=== PATIENT | female | born 1945 | race Caucasian/White ===

== ENCOUNTER 2016-11-06 12:22 | Emergency (ER) | payer MEDICARE, BC ==
--- NOTE | 2016-11-06 13:13 | EDM.PDOC ---
ED HPI GENERAL MEDICAL PROBLEM - General Chief Complaint: Abdominal Pain Stated Complaint: Abdominal Pain Time Seen by Provider: 11/06/16 12:34 Source of Information: Reports: Patient History Limitations: Reports: No Limitations - History of Present Illness INITIAL COMMENTS - FREE TEXT/NARRATIVE: Patient developed LUQ pain in abdomen around 4am. Has nausea. No emesis. Feels like previous obstructions that she has experienced. Was passing a lot of gas, now none. Has had approx 4 very small bowel movements. Had to have surgery last year in LUQ area to relieve bowel obstruction. Recently had her anxiety medication changed and feels it slowed down her BMs. Does not recall name of new medication. Denies other changes on ROS Abdominal Pain Score (Numeric/FACES): 10 - Related Data Allergies Allergy/AdvReac Type Severity Reaction Status Date / Time codeine phosphate Allergy Hives Verified 11/06/16 13:42 [From Tylenol-Codeine #3] morphine Allergy Hives Verified 11/06/16 13:42 Home Meds: Home Meds Sertraline [Zoloft] 200 mg PO DAILY 07/08/14 [History] Dexlansoprazole [Dexilant] 30 mg PO DAILY 04/20/15 [History] Sennosides/Docusate Sodium [Senna S Tablet] 2 each PO DAILY 04/20/15 [History] Simvastatin [Zocor] 20 mg PO BEDTIME 04/20/15 [History] Naproxen Sodium [Aleve] 440 mg PO ASDIRECTED PRN 11/10/15 [History] Amitriptyline [Elavil] 25 mg PO BEDTIME #30 tablet 11/16/15 [Rx] Gabapentin [Neurontin] 100 mg PO BEDTIME #30 cap 11/16/15 [Rx] ALPRAZolam [Alprazolam] 1 tab PO Q6HR PRN 11/06/16 [History] buPROPion HCl [Wellbutrin Xl] 150 mg PO DAILY 11/06/16 [History] Past Medical History HEENT History: Reports: Impaired Vision, Other (See Below) Other HEENT History: Glasses Cardiovascular History: Reports: High Cholesterol Respiratory History: Reports: COPD, Pulmonary Fibrosis, Sleep Apnea, Other (See Below) Other Respiratory History: COPD and pulmonary fibrosis by chest x-ray, patient did not tolerate auto CPAP Gastrointestinal History: Reports: Bowel Obstruction, Cholelithiasis, Chronic Constipation, Diverticulosis, GERD, GI Bleed, Hiatal Hernia, Irritable Bowel Syndrome, PUD, Other (See Below) Other Gastrointestinal History: History of recurrent small bowel obstructions and previous diverticulitis with status post hemicolectomy, moderate hiatal hernia, benign hepatic and renal cysts, LFTs elevation secondary to fatty liver Genitourinary History: Reports: Urinary Incontinence LOADER UNLOADER History: Reports: Dysfunctional Uterine Bleeding, , Spontaneous , Other (See Below) Other OB/BYN History: Surgical menopause as below, patient is 5 para [id number] with SABs between 3 and 5 months gestation requiring D&Cs as below, hysterectomy secondary to dysfunctional uterine bleeding Musculoskeletal History: Reports: Back Pain, Chronic, Fracture, Osteoarthritis, Osteoporosis, Other (See Below) Other Musculoskeletal History: History scoliosis with chronic low back pain, right bimalleolar ankle fracture on 06/10/09 Neurological History: Reports: Migraines, Neuropathy, Peripheral Psychiatric History: Reports: Addiction, Anxiety, Depression, Panic Attack, Psych Hospitalization(s), PTSD, Other (See Below) Other Psychiatric History: Previous history of chronic narcotic use/abuse. PTSD secondary to of her daughter from breast cancer at an early age Endocrine/Metabolic History: Reports: Multinodular Thyroid, Osteoporosis Hematologic History: Reports: None Immunologic History: Reports: Other (See Below) Other Immunologic History: Auto-immune scalp alopecia as below Oncologic (Cancer) History: Reports: None Dermatologic History: Reports: Other (See Below) Other Dermatologic History: Autoimmune scalp alopecia - Infectious Disease History Infectious Disease History: Reports: Chicken Pox, Measles, Mumps, Rheumatic Fever - Past Surgical History HEENT Surgical History: Reports: Oral Surgery, Other (See Below) GI Surgical History: Reports: Appendectomy, Cholecystectomy, Colon, Colonoscopy , EGD, Hernia, Abdominal, Lysis of Adhesions, Michelle Fundoplication, Small Bowel , Other (See Below) Female Surgical History: Reports: D&C, Dilitation & Evacuation, Hysterectomy , Salpingo-Oophorectomy, Other (See Below) Musculoskeletal Surgical History: Reports: Ganglion Cyst, ORIF, Other (See Below ) Oncologic Surgical History: Reports: Biopsy of Breast - Past Imaging History Past Imaging History: Reports: Cardiac Echo, Carotid US, CAT Scan, DEXA Scan, Mammogram, Sleep Study, Stress Testing, Ultrasound Social & Family History - Family History HEENT: Reports: None Cardiac: Reports: CAD, Heart Failure, Hypertension, SD, Other (See Below) Other Cardiac Family History: Coronary artery disease in mother and sister with mother with fatal CHF at age 91 and heart attack at age 89. Hypertension in parents Respiratory: Reports: None GI: Reports: None : Reports: Renal Disease/Insufficiency OBGYN: Reports: None Musculoskeletal: Reports: Arthritis, Osteoarthritis, RA, Other (See Below) Other Musculoskeletal Family History: Sister and parents with rheumatoid arthritis Neurological: Reports: Alzheimers Disease, CVA, Dementia, Migraines, Parkinson's , Other (See Below) Other Neurological Family History: Mother with CVA in her 50s. Paternal grandfather with Parkinson's disease, father with organic brain syndrome/ dementia, daughters x2 with migraines Psychiatric: Reports: Anxiety, Depression, Other (See Below) Other Psychiatric Family History: Anxiety and depression in parents and 3 children Endocrine/Metabolic: Reports: None Hematologic: Reports: None Immunologic: Reports: None Dermatologic: Reports: None Oncologic: Reports: Breast, Metastatic - Tobacco Use Smoking Status *Q: Former Smoker Years of Tobacco use: 53 Packs/Tins Daily: 1 Used Tobacco, but Quit: Yes Month Tobacco Last Used: Discontinued in July 2014 Second Hand Smoke Exposure: No - Caffeine Use Caffeine Use: Reports: Coffee (5 cups of coffee per day), Tea (4 cups of green tea per day). Denies: Energy Drinks, Soda - Alcohol Use Days Per Week of Alcohol Use: 0 (No previous DWIs, problems with alcohol abuse, etc.) Number of Drinks Per Day: 1 (Usually wine for holiday) Total Drinks Per Week: 0 - Recreational Drug Use Recreational Drug Use: No Drug Use in Last 12 Months: No Recreational Drug Type: Denies: Amphetamines (Speed), Marijuana/Hashish, Methamphetamine - Living Situation & Occupation Living situation: Reports: , with Family Occupation: Retired ED ROS GENERAL - Review of Systems Review Of Systems: See Below Constitutional: Reports: Decreased Appetite. Denies: Fever, Chills, Malaise, Weakness, Night Sweats, Diaphoresis HEENT: Reports: No Symptoms Respiratory: Reports: No Symptoms Cardiovascular: Reports: No Symptoms GI/Abdominal: Reports: Abdominal Pain, Decreased Appetite, Nausea. Denies: Black Stool, Bloody Stool, Constipation, Hematemesis, Hematochezia, Vomiting : Reports: Other (Wears depends, feels that urine has been more leaky than usual over the past few weeks. ) Musculoskeletal: Reports: No Symptoms Skin: Reports: No Symptoms Neurological: Reports: No Symptoms Psychiatric: Reports: No Symptoms ED EXAM, GI/ABD - Physical Exam Exam: See Below Exam Limited By: No Limitations General Appearance: Alert, WD/WN, Mild Distress Eyes: Bilateral: Normal Appearance, EOMI Ears: Normal External Exam Nose: Normal Inspection. No: Nasal Swelling, Nasal Drainage Throat/Mouth: Normal Inspection, Normal Lips, Normal Voice, No Airway Compromise Head: Atraumatic, Normocephalic Neck: Normal Inspection, Supple, Non-Tender, Full Range of Motion. No: Lymphadenopathy (L), Lymphadenopathy (R) Respiratory/Chest: No Respiratory Distress, Lungs Clear, Normal Breath Sounds, No Accessory Muscle Use, Chest Non-Tender Cardiovascular: Normal Peripheral Pulses, Regular Rate, Rhythm, No Edema, No Murmur GI/Abdominal: Soft, Hypoactive Bowel Sounds, Tenderness (throughout, more so LUQ and periumbilically). No: Distention, Guarding, Rebound, Rigidity Back Exam: Normal Inspection. No: CVA Tenderness (L), CVA Tenderness (R), Muscle Spasm, Paraspinal Tenderness, Vertebral Tenderness Extremities: Normal Inspection, Normal Range of Motion, Non-Tender, No Pedal Edema, Normal Capillary Refill Neurological: Alert, Oriented, Normal Cognition, Normal Gait, No Motor/Sensory Deficits Psychiatric: Anxious Skin Exam: Warm, Dry, Intact, Normal Color Course - Vital Signs Last Recorded V/S: Last Vital Signs Temp 36.4 C 11/06/16 12:40 Pulse 62 11/06/16 12:40 Resp 20 11/06/16 12:40 BP 147/82 H 11/06/16 12:40 Pulse Ox 98 11/06/16 12:40 - Orders/Labs/Meds Orders: Active Orders 24 hr Category Date Time Status Peripheral IV Care [RC] . DIRECTED Care 11/06/16 12:37 Active Abdomen 2V AP Flat Upright [CR] Stat Exams 11/06/16 12:38 Ordered Sodium Chloride 0.9% [Normal Saline] 1,000 ml Med 11/06/16 13:23 Ordered IV .BOLUS Sodium Chloride 0.9% [Saline Flush] Med 11/06/16 12:37 Active 10 ml FLUSH ASDIRECTED PRN fentaNYL [Sublimaze] Med 11/06/16 13:52 Once 50 mcg IVPUSH ONETIME ONE Peripheral IV Insertion Adult [OM.PC] Stat Oth 11/06/16 12:37 Ordered Medication Orders Sodium Chloride (Normal Saline) 1,000 mls @ 250 mls/hr IV .BOLUS ONE Stop: 11/06/16 17:22 Last Admin: 11/06/16 13:32 Dose: 250 mls/hr Sodium Chloride (Saline Flush) 10 ml FLUSH ASDIRECTED PRN PRN Reason: Keep Vein Open Last Admin: 11/06/16 13:31 Dose: 10 ml Labs: Laboratory Tests 11/06/16 11/06/16 11/06/16 Range/Units 12:37 12:50 12:50 WBC 6.7 (4.0-10.2) K/uL RBC 4.32 (3.77-5.09) M/uL Hgb 13.4 D (11.7-15.5) g/dL Hct 38.6 (34.0-46.0) % MCV 89.4 (84.0-98.0) fL MCH 31.0 (28.2-33.3) pg MCHC 34.7 (31.7-36.0) g/dL RDW 13.3 (11.2-14.1) % Plt Count 187 (150-350) K/uL Neut % (Auto) 57.5 (45.0-80.0) % Lymph % (Auto) 29.2 (10.0-50.0) % [place] % (Auto) 7.8 (2.0-14.0) % Eos % (Auto) 4.3 (0.0-5.0) % Baso % (Auto) 1.2 (0.0-2.0) % Neut # (Auto) 3.83 (1.40-7.00) K/uL Lymph # (Auto) 1.95 (0.50-3.50) K/uL [place] # (Auto) 0.52 (0.00-1.00) K/uL Eos # (Auto) 0.29 (0.00-0.50) K/uL Baso # (Auto) 0.08 (0.00-0.20) K/uL Sodium 142 (136-145) mmol/L Potassium 3.9 (3.5-5.1) mmol/L Chloride 109 H (98-107) mmol/L Carbon Dioxide 25.3 (21.0-32.0) mmol/L BUN 12 (7-18) mg/dL Creatinine 0.66 (0.51-1.17) mg/dL Est Cr Clr Drug Dosing TNP Estimated GFR (MDRD) > 60 mL/min Glucose 109 H (74-106) mg/dL Lactic Acid (0.4-2.0) mmol/L Calcium 9.0 (8.5-10.1) mg/dL Total Bilirubin 0.2 (0.2-1.0) mg/dL AST 16 (15-37) U/L ALT 17 (12-78) U/L Alkaline Phosphatase 82 (46-116) IU/L Troponin I 0.003 (0.000-0.056) ng/mL Total Protein 7.2 (6.4-8.2) g/dL Albumin 3.5 (3.4-5.0) g/dL Amylase 48 (25-115) U/L Lipase 100 (73-393) U/L Specimen Type Urinvoid Urine Color Light yellow Urine Appearance Clear Urine pH 8.5 (5.0-9.0) Ur Specific [place] 1.015 (1.005-1.030) Urine Protein Negative (NEGATIVE) mg/dL Urine Glucose (UA) Negative (NEGATIVE) mg/dL Urine Ketones Negative (NEGATIVE) mg/dL Urine Occult Blood Negative (NEGATIVE) Urine Nitrite Negative (NEGATIVE) Urine Bilirubin Negative (NEGATIVE) Urine Urobilinogen 0.2 (0.2-1.0) E.U./dL Ur Leukocyte Esterase Negative (NEGATIVE) Urine RBC 0-5 /HPF Urine WBC Not seen /HPF Ur Epithelial Cells Not seen /LPF Urine Bacteria Not seen (NONE TO FEW) /HPF 11/06/16 Range/Units 12:50 WBC (4.0-10.2) K/uL RBC (3.77-5.09) M/uL Hgb (11.7-15.5) g/dL Hct (34.0-46.0) % MCV (84.0-98.0) fL MCH (28.2-33.3) pg MCHC (31.7-36.0) g/dL RDW (11.2-14.1) % Plt Count (150-350) K/uL Neut % (Auto) (45.0-80.0) % Lymph % (Auto) (10.0-50.0) % [place] % (Auto) (2.0-14.0) % Eos % (Auto) (0.0-5.0) % Baso % (Auto) (0.0-2.0) % Neut # (Auto) (1.40-7.00) K/uL Lymph # (Auto) (0.50-3.50) K/uL [place] # (Auto) (0.00-1.00) K/uL Eos # (Auto) (0.00-0.50) K/uL Baso # (Auto) (0.00-0.20) K/uL Sodium (136-145) mmol/L Potassium (3.5-5.1) mmol/L Chloride (98-107) mmol/L Carbon Dioxide (21.0-32.0) mmol/L BUN (7-18) mg/dL Creatinine (0.51-1.17) mg/dL Est Cr Clr Drug Dosing Estimated GFR (MDRD) mL/min Glucose (74-106) mg/dL Lactic Acid 0.5 (0.4-2.0) mmol/L Calcium (8.5-10.1) mg/dL Total Bilirubin (0.2-1.0) mg/dL AST (15-37) U/L ALT (12-78) U/L Alkaline Phosphatase (46-116) IU/L Troponin I (0.000-0.056) ng/mL Total Protein (6.4-8.2) g/dL Albumin (3.4-5.0) g/dL Amylase (25-115) U/L Lipase (73-393) U/L Specimen Type Urine Color Urine Appearance Urine pH (5.0-9.0) Ur Specific [place] (1.005-1.030) Urine Protein (NEGATIVE) mg/dL Urine Glucose (UA) (NEGATIVE) mg/dL Urine Ketones (NEGATIVE) mg/dL Urine Occult Blood (NEGATIVE) Urine Nitrite (NEGATIVE) Urine Bilirubin (NEGATIVE) Urine Urobilinogen (0.2-1.0) E.U./dL Ur Leukocyte Esterase (NEGATIVE) Urine RBC /HPF Urine WBC /HPF Ur Epithelial Cells /LPF Urine Bacteria (NONE TO FEW) /HPF Meds: Medications Generic Name Dose Route Start Last Admin Trade Name Freq PRN Reason Stop Dose Admin Sodium Chloride 1,000 mls @ 250 mls/hr 11/06/16 13:23 11/06/16 13:32 Normal Saline IV 11/06/16 17:22 250 mls/hr .BOLUS ONE Administration Sodium Chloride 10 ml 11/06/16 12:37 11/06/16 13:31 Saline Flush FLUSH 10 ml ASDIRECTED PRN Administration Keep Vein Open Discontinued Medications Generic Name Dose Route Start Last Admin Trade Name Freq PRN Reason Stop Dose Admin Fentanyl 25 mcg 11/06/16 13:14 11/06/16 13:29 Sublimaze IVPUSH 11/06/16 13:15 25 mcg ONETIME ONE Administration Ondansetron HCl 4 mg 11/06/16 13:15 11/06/16 13:31 Zofran IVPUSH 11/06/16 13:16 4 mg ONETIME ONE Administration - Radiology Interpretation Free Text/Narrative:: abdominal film shows scattered air/fluid levels. No obvious free air. - Re-Assessments/Exams Free Text/Narrative Re-Assessment/Exam: 11/06/16 13:54 CBC/Chem/UA/amylase/lipase/troponin overall unremarkable. Pain improved with Fentanyl. Zofran given. Suspect partial bowel obstruction given history and presentation. Admission advised. Patient preferred to go to [facility] as she require surgery last episode and can have surgical consult performed at that facility. , hospitalist at [facility], contacted. Accepted patient in transfer. No emesis observed. No abdominal distention observed. Discussed with patient that NG tube may need to be placed. She wished to wait until getting to [facility] before considering NG tube placement. NPO at time of transfer. Departure - Departure Time of Disposition: 13:58 Disposition: DC/Tfer to Acute Hospital 02 Condition: Good Clinical Impression: Partial bowel obstruction - Discharge Information Forms: ED Department Discharge - My Orders Last 24 Hours: My Active Orders 11/06/16 12:37 Peripheral IV Care [RC] . DIRECTED Sodium Chloride 0.9% [Saline Flush] 10 ml FLUSH ASDIRECTED PRN Peripheral IV Insertion Adult [OM.PC] Stat 11/06/16 12:38 Abdomen 2V AP Flat Upright [CR] Stat 11/06/16 13:23 Sodium Chloride 0.9% [Normal Saline] 1,000 ml IV .BOLUS 11/06/16 13:52 fentaNYL [Sublimaze] 50 mcg IVPUSH ONETIME ONE - Assessment/Plan Last 24 Hours: My Active Orders 11/06/16 12:37 Peripheral IV Care [RC] . DIRECTED Sodium Chloride 0.9% [Saline Flush] 10 ml FLUSH ASDIRECTED PRN Peripheral IV Insertion Adult [OM.PC] Stat 11/06/16 12:38 Abdomen 2V AP Flat Upright [CR] Stat 11/06/16 13:23 Sodium Chloride 0.9% [Normal Saline] 1,000 ml IV .BOLUS 11/06/16 13:52 fentaNYL [Sublimaze] 50 mcg IVPUSH ONETIME ONE
[2016-11-06 13:14] LABS: CHLORIDE,CL 109 mmol/L (98-107); SODIUM,NA 142 mmol/L (136-145)
[2016-11-06] MEDS ORDERED: fentaNYL 100 MCG/2 ML SDV IVPUSH ONE ×2 (13:14→13:52)
[2016-11-06] MEDS ORDERED: Ondansetron 4 MG/2 ML SDV IVPUSH ONE (13:15)
[2016-11-06] MEDS ORDERED: Sodium Chloride 0.9% 1,000 ML IV ONE (13:23)
[2016-11-06] MEDS: Sodium Chloride 0.9% 10 ML Syringe FLUSH PRN ×2 (13:31→14:27)
[2016-11-06 15:02] VITALS: BP 106/73
== END 2016-11-06 14:37 ==
LOC: LL.ED 12:22
DX: K56.69 Other intestinal obstruction (principal); E78.00 Pure hypercholesterolemia, unspecified; J44.9 Chronic obstructive pulmonary disease, unspecified; K21.9 Gastro-esophageal reflux disease without esophagitis; M19.90 Unspecified osteoarthritis, unspecified site; M81.0 Age-related osteoporosis without current pathological fracture; F32.9 Major depressive disorder, single episode, unspecified; F41.0 Panic disorder [episodic paroxysmal anxiety]; Z90.49 Acquired absence of other specified parts of digestive tract; Z90.710 Acquired absence of both cervix and uterus; Z90.721 Acquired absence of ovaries, unilateral; Z98.890 Other specified postprocedural states; Z87.891 Personal history of nicotine dependence; Z79.899 Other long term (current) drug therapy; Z88.5 Allergy status to narcotic agent
CPT/HCPCS: 36415; 74020; 80053; 81001; 82150; 83605; 83690; 84484; 85025; 96361; 96374; 96375; 96376; 99285; J2405; J3010; J7030; J7050; 99284

== ENCOUNTER 2017-08-22 16:17 | Emergency (ER) | payer MEDICARE, BC ==
[2017-08-22] MEDS ORDERED: Sodium Chloride 0.9% 10 ML Syringe FLUSH PRN (16:35)
[2017-08-22] MEDS ORDERED: Famotidine 20 MG/2 ML SDV IVPUSH ONE (16:35)
--- NOTE | 2017-08-22 16:35 | EDM.PDOC ---
ED HPI GENERAL MEDICAL PROBLEM - General Chief Complaint: Cardiovascular Problem Stated Complaint: chest pain, nausea, heart burn, anxiety Time Seen by Provider: 08/22/17 16:25 Source of Information: Reports: Patient, Old Records ([facility] chart/EMR), Other ([facility] EMR) History Limitations: Reports: No Limitations - History of Present Illness INITIAL COMMENTS - FREE TEXT/NARRATIVE: The patient was brought to the emergency room via private automobile by her son for evaluation of progressive initially intermittent and now constant nonspecific 8/10 retrosternal chest pain/"burning" associated with some possible mild diaphoresis, dyspnea, dizziness, nausea and 2 episodes of emesis earlier today. The patient did take some OTC antacids and 1000 mg of Tylenol at 15:30 hours with last emesis at 14:00 hours today. She did have a normal bowel movement at about 12 PM today. The patient denies any other chest pain/pressure , heart flutter, orthostasis, orthopnea, paresthesias, recent decreased exercise tolerance, or any other anginal-type symptoms. No recent history of abdominal pain, heartburn, diarrhea, melena, gross hematochezia, or any food intolerance, including fatty foods, etc.. The patient also denies any recent fever, cough, wheezing, dyspnea, etc.. She has not measured her temperature to this point. The patient also denies any gross hematuria, colic, or other UTI symptoms with stable intermittent stress incontinence. She denies any medication noncompliance. The patient also complains of very occasional nonspecific sore throat with no known exposure to infection. Onset: Gradual Onset Date: 08/19/17 Duration: Constant, Getting Worse, Intermittent Location: Reports: Chest. Denies: Head, Face, Neck, Abdomen, Back, Upper Extremity, Left, Upper Extremity, Right, Radiates to Quality: Reports: Burning, Same as Previous Episode Severity: Moderate Improves with: Reports: None Worsens with: Reports: None Context: Reports: Other (As above) Associated Symptoms: Reports: Chest Pain, Diaphoresis, Nausea/Vomiting, Shortness of Breath. Denies: Confusion, Cough, cough w sputum, Fever/Chills, Headaches, Loss of Appetite, Rash, Syncope, Weakness Treatments DEPARTMENT STORE SALESPERSON: Reports: Other Medication(s) (As above) Other Treatments DEPARTMENT STORE SALESPERSON: antacid, tylenol Middle Chest Pain Score (Numeric/FACES): 8 - Related Data Allergies Allergy/AdvReac Type Severity Reaction Status Date / Time codeine phosphate Allergy Hives Verified 08/22/17 16:23 [From Tylenol-Codeine #3] morphine Allergy Hives Verified 08/22/17 16:23 Home Meds: Home Meds Sertraline [Zoloft] 100 mg PO DAILY 07/08/14 [History] Sennosides/Docusate Sodium [Senna S Tablet] 2 each PO DAILY 04/20/15 [History] buPROPion HCl [Wellbutrin Xl] 150 mg PO DAILY 11/06/16 [History] Famotidine [Pepcid] 20 mg PO BEDTIME #30 tab 08/22/17 [Rx] Pantoprazole [ProTONIX] 40 mg PO BID 08/22/17 [History] Past Medical History HEENT History: Reports: Cataract, Impaired Vision, Other (See Below). Denies: Allergic Rhinitis, Glaucoma, Hard of Hearing, Macular Degeneration, Retinal Detachment Other HEENT History: Glasses Cardiovascular History: Reports: Cardiomyopathy, High Cholesterol, Hypertension , Other (See Below). Denies: Afib, Aneurysm, Arrhythmia, Blood Clots/VTE/DVT, Heart Failure, Heart Murmur, DC, PVD, Syncope Other Cardiovascular History: Mild left ventricular enlargement and grade 1 diastolic dysfunction by echocardiogram on 11/17/15 Respiratory History: Reports: COPD, Pulmonary Fibrosis, Sleep Apnea, Other (See Below). Denies: Asthma, PE, Pneumothorax Other Respiratory History: COPD and pulmonary fibrosis by chest x-ray, patient did not tolerate auto CPAP Gastrointestinal History: Reports: Bowel Obstruction, Cholelithiasis, Chronic Constipation, Diverticulosis, Gastritis, GERD, GI Bleed, Hiatal Hernia, Irritable Bowel Syndrome, PUD, Other (See Below). Denies: Celiac Disease, Hepatitis, Helicobacter Pylori, Inflammatory Bowel Disease, Jaundice, Pancreatitis Other Gastrointestinal History: History of recurrent small bowel obstructions and previous diverticulitis with status post hemicolectomy, moderate hiatal hernia, benign hepatic and renal cysts, LFTs elevation secondary to fatty liver. GERD with history of gastritis and esophagitis Genitourinary History: Reports: Urinary Incontinence, UTI, Recurrent. Denies: Acute Renal Failure, Chronic Renal Insuffiency, Renal Calculus, STD STEM ASSEMBLER History: Reports: Dysfunctional Uterine Bleeding, , Spontaneous , Other (See Below) : 7 Para: 3 LMP (Approximate): Other (See Below) Other OB/BYN History: Surgical menopause as below, patient is 7 para [id number] with SABs between 3 and 5 months gestation requiring D&Cs as below, hysterectomy secondary to dysfunctional uterine bleeding Musculoskeletal History: Reports: Arthritis, Back Pain, Chronic, Fracture, Neck Pain, Chronic, Osteoarthritis, Osteoporosis, Other (See Below). Denies: Amputation, Gout, RA, SLE Other Musculoskeletal History: History scoliosis with chronic low back pain, right bimalleolar ankle fracture on 06/10/09 Neurological History: Reports: Migraines, Neuropathy, Peripheral. Denies: Cerebral Aneurysms, Concussion, CVA, Head Trauma, MS, Parkinson's, Seizure, TIA Psychiatric History: Reports: Addiction, Anxiety, Depression, Panic Attack, Psych Hospitalization(s), PTSD, Other (See Below). Denies: Abuse, Victim of, ADD, ADHD, Suicide Attempt, Suicidal Ideation Other Psychiatric History: Previous history of chronic narcotic use/abuse. PTSD secondary to of her daughter from breast cancer at an early age Endocrine/Metabolic History: Reports: Multinodular Thyroid, Osteopenia, Osteoporosis, Other (See Below). Denies: Diabetes, Type I, Diabetes, Type II, IDDM Other Endocrine/Metabolic History: Benign parathyroid adenoma by nuclear scan on 01/22/10 Hematologic History: Reports: None. Denies: Anemia, Blood Transfusion(s), Iron Deficiency Immunologic History: Reports: Other (See Below). Denies: AIDS, SLE Other Immunologic History: Auto-immune scalp alopecia as below Oncologic (Cancer) History: Reports: None. Denies: Basal Cell Carcinoma, Breast , Cervix, Hodgkin's Lymphoma, Leukemia, Lymphoma, Malignant Melanoma, Non- Hodgkin's Lymphoma, Squamous Cell Carcinoma Dermatologic History: Reports: Other (See Below). Denies: Eczema, Psoriasis Other Dermatologic History: Autoimmune scalp alopecia - Infectious Disease History Infectious Disease History: Reports: Chicken Pox, Measles, Mumps, Rheumatic Fever (Rheumatic fever at age 3). Denies: C-Difficile, Meningitis, Mononucleosis, MRSA, Rubella, Shingles, TB, VRE - Past Surgical History Head Surgeries/Procedures: Reports: None HEENT Surgical History: Reports: Cataract Surgery, Oral Surgery, Other (See Below). Denies: Adenoidectomy, Eye Surgery, Laser Surgery, LASIK, Myringotomy w Tube(s), Naso-Sinus Surgery, Tonsillectomy Other HEENT Surgeries/Procedures: [place] teeth extraction at age 17. Multiple teeth extractions. Right cataract surgery on 06/06/17 with left cataract surgery in June 2017 Cardiovascular Surgical History: Reports: None. Denies: Varicose, Vascular Surgery Respiratory Surgical History: Reports: None. Denies: Thoracentesis GI Surgical History: Reports: Appendectomy, Cholecystectomy, Colon, Colonoscopy , EGD, Hernia, Abdominal, Lysis of Adhesions, Michelle Fundoplication, Small Bowel , Other (See Below) Other GI Surgeries/Procedures: Exploratory laparotomy with multiple adhesio lysis and repair of 3 enterotomies on 04/22/15. Last EGD on 01/04/17 with previous evaluations on 11/09/16, 12/06/12, and 09/15/11. Last colonoscopy on . Appendectomy in about 1974. Open cholecystectomy with concomitant complete hysterectomy in the . Colon Surgery 3 including partial colectomy resulting in apparent complete left hemicolectomy secondary to diverticulosis with last surgery in 1993. Ventral abdominal hernia repair and Michelle fundoplication. Unsuccessful adhesiolysis on 04/22/15? Female Surgical History: Reports: Breast Biopsy, D&C, Dilitation & Evacuation , Hysterectomy, Salpingo-Oophorectomy, Tubal Ligation, Other (See Below). Denies: Section Other Female Surgeries/Procedures: Breast biopsies 4 for benign disease at about age 43. Bilateral tubal ligation at age 30. D&C 3 secondary to SABs. Complete hysterectomy with bilateral salpingo-oophorectomy in the secondary to dysfunctional uterine bleeding Endocrine Surgical History: Reports: Thyroid Biopsy, Other (See Below) Other Endocrine Surgeries/Procedures: Multiple negative fine needle aspiration biopsies on 11/30/09. Neurological Surgical History: Reports: None. Denies: C-Spine, Discectomy, Laminectomy, Lumbar Spine, Sacral Spine, Spinal Fusion, Vertebroplasty Musculoskeletal Surgical History: Reports: Ganglion Cyst, ORIF, Other (See Below ). Denies: Amputation, Arthroscopic Knee, Joint Replacement, Shoulder Surgery Other Musculoskeletal Surgeries/Procedures:: ORIF of right ankle fracture in June 2009 with subsequent hardware removal. Excision of ganglion from the right wrist on 08/09/01. Oncologic Surgical History: Reports: Biopsy of Breast, Other (See Below). Denies: Bone Marrow Aspiration Other Oncologic Surgeries/Procedures: Breast biopsies for benign disease as above Dermatological Surgical History: Reports: None - Past Imaging History Past Imaging History: Reports: Cardiac Echo (Last echocardiogram on 11/17/15 with ejection fraction of 6065 percent with results as above), Carotid US, CAT Scan (CT of the brain on 05/24/16. CT of the abdomen and pelvis on 11/06/16, and 08/24/12. CTA of the chest on 02/04/15. CT of the pelvis), DEXA Scan (), Mammogram (Last on 03/11/14), Sleep Study (05/30/11 with patient not tolerating autoCPAP), Stress Testing (01/29/15), Ultrasound (Thyroid ultrasound on 01/27/15 with previous evaluation on 10/19/09. Right upper quadrant abdominal ultrasound on 11/08/16. Abdominal ultrasound on 07/31/08), Upper GI X-Ray/Series ( Upper GI on 07/10/08), Other (See Below) (Thyroid nuclear scan on 01/22/10) Social & Family History - Family History HEENT: Reports: None. Denies: Glaucoma, Macular Degeneration, Retinal Detachment Cardiac: Reports: CAD, Heart Failure, Hypertension, DC, Other (See Below). Denies: Afib, Aneurysm, Arrhythmia, Blood Clots/VTE/DVT, Bypass, High Cholesterol, Pacemaker, PVD/COD, Stent, Syncope Other Cardiac Family History: Coronary artery disease in mother and sister with mother with fatal CHF at age 91 and heart attack at age 89. Hypertension in parents Respiratory: Reports: None. Denies: Asthma, COPD, PE, Pneumothorax, Sleep Apnea GI: Reports: None. Denies: Celiac Disease, Cholelithiasis, Colon Polyps, GERD, GI bleed, Hiatal Hernia, Inflammatory Bowel Disease, Irritable Bowel Syndrome, Pancreatitis, PUD : Reports: Renal Disease/Insufficiency, Other (See Below). Denies: Dialysis, Renal Calculus Other Family History: Mother with kidney failure in her 90s OBGYN: Reports: None. Denies: Endometriosis, Recurrent Spontaneous Musculoskeletal: Reports: Arthritis, Osteoarthritis, RA, Other (See Below). Denies: Gout, SLE Other Musculoskeletal Family History: Sister and parents with rheumatoid arthritis Neurological: Reports: Alzheimers Disease, CVA, Dementia, Migraines, Parkinson's , Other (See Below). Denies: Cerebral Aneurysms, MS, Seizure, TIA Other Neurological Family History: Brother with hemorrhagic CVA at age 65. Mother with CVA in her 50s. Paternal grandfather with Parkinson's disease, father with organic brain syndrome/dementia, daughters x2 with migraines Psychiatric: Reports: Anxiety, Depression, Other (See Below). Denies: Abuse, Victim of, ADD, ADHD, Psych Hospitalization(s), PTSD, Suicide Attempt Other Psychiatric Family History: Anxiety and depression in parents and 3 children Endocrine/Metabolic: Reports: None. Denies: Diabetes, Type I, Diabetes, type II , Diabetes Mellitus, Type 3c, Hypothyroidism, IDDM Hematologic: Reports: None. Denies: Anemia, B12 Deficiency, SLE Immunologic: Reports: None. Denies: AIDS, HIV, SLE Dermatologic: Reports: None. Denies: Eczema, Psoriasis Oncologic: Reports: Breast, Lymphoma, Metastatic, Other (See Below). Denies: Cervix, Colon, Hodgkin's Lymphoma, Leukemia, Non-Hodgkin's Lymphoma, Ovarian, Skin, Thyroid, Uterine Other Oncologic Family History: Daughter with metastatic breast cancer at age 35 fatal at age 37. Daughter with lymphoma in her 30s - Tobacco Use Smoking Status *Q: Former Smoker Tobacco Use Within Last Twelve Months: No Years of Tobacco use: 53 Packs/Tins Daily: 1 Used Tobacco, but Quit: Yes Month/Year Tobacco Last Used: Discontinued in July 2014 Smoking Cessation Information Provided To Patient: No Second Hand Smoke Exposure: No Second Hand Smoke Education Provided: No - Caffeine Use Caffeine Use: Reports: Coffee (5 cups of coffee per day), Tea (4 cups of green tea per day). Denies: Energy Drinks, Soda - Alcohol Use Days Per Week of Alcohol Use: 0 (No previous DWIs, problems with alcohol abuse, etc.) Number of Drinks Per Day: 1 (Usually wine for holiday) Total Drinks Per Week: 0 Alcohol Use in Last Twelve Months: Yes Alcohol Use Frequency: Rarely, Socially - Recreational Drug Use Recreational Drug Use: No Drug Use in Last 12 Months: No Recreational Drug Type: Denies: Amphetamines (Speed), Cocaine, Heroin, Inhalants (Glues, Solvents, Aerosols), Ketamines, LSD (Acid), Marijuana/Hashish , Methamphetamine, Morphine, Oxycodone - Living Situation & Occupation Living situation: Reports: (1963), with Family (Son and ) Occupation: Retired (Housewife) ED ROS GENERAL - Review of Systems Review Of Systems: ROS reveals no pertinent complaints other than HPI. ED EXAM, GENERAL - Physical Exam Exam: See Below Exam Limited By: No Limitations General Appearance: Alert, WD/WN, No Apparent Distress, Anxious (Mild to moderate) Eye Exam: Bilateral Eye: EOMI, Normal Inspection (No nystagmus. Wearing glasses) , PERRL Ears: Normal External Exam, Normal Canal, Hearing Grossly Normal, Normal TMs Nose: Normal Mucosa, No Blood, Clear Rhinorrhea (Mild bilateral) Throat/Mouth: Normal Inspection, Normal Lips, Normal Gums, Normal Oropharynx, Normal Voice, No Airway Compromise. No: Normal Teeth (Multiple missing teeth uppers and lowers with patient not wearing her partial upper and lower dentures ) Head: Atraumatic, Normocephalic. No: Facial Swelling, Facial Tenderness, Sinus Tenderness Neck: Supple, Non-Tender, Full Range of Motion, Carotid Bruit (Mild bilateral carotid bruits). No: Lymphadenopathy (L), Lymphadenopathy (R), Thyromegaly Respiratory/Chest: No Respiratory Distress, Lungs Clear, Normal Breath Sounds, No Accessory Muscle Use, Chest Non-Tender. No: Pleural Rub, Retractions Cardiovascular: Normal Peripheral Pulses, Regular Rate, Rhythm, No Edema, No Gallop, No JVD, No Murmur, No Rub. No: Gallop/S3, Gallop/S4, Friction Rub Peripheral Pulses: 2+: Radial (L), Radial (R), Dorsalis Pedis (L), Dorsalis Pedis (R) GI/Abdominal: Normal Bowel Sounds, Soft, Non-Tender, No Organomegaly, No Distention, No Abnormal Bruit, No Mass. No: Guarding (Female) Exam: Deferred Rectal (Female) Exam: Deferred Back Exam: Full Range of Motion, Other (Mild scoliosis). No: CVA Tenderness (L) , CVA Tenderness (R), Muscle Spasm Extremities: Normal Inspection, Normal Range of Motion, Non-Tender, No Pedal Edema, Normal Capillary Refill. No: Gilda's Sign Neurological: Alert, Oriented, CN II-XII Intact, Normal Cognition, Normal Gait, Normal Reflexes (Negative Babinski's), No Motor/Sensory Deficits Psychiatric: Anxious (Mild to moderate). No: Depressed Mood Skin Exam: Warm, Dry, Intact, Normal Color, No Rash. No: Diaphoretic, Jaundice , Wound/Incision Lymphatic: No Adenopathy EKG INTERPRETATION EKG Date: 08/22/17 Time: 16:49 Rhythm: NSR Rate (Beats/Min): 73 [place]: Normal (Neutral cardiac axis) P-Wave: Enlarged (Moderate diffuse biphasic P waves with extreme poor R-wave progression in the anterior leads) QRS: Normal (0.08 seconds with repolarization changes) ST-T: Normal QT: Normal NV/PQ Interval: 0.16 seconds Comparison: NA - No Prior EKG (No recent EKG for comparison) EKG Interpretation Comments: 1. No acute ischemic changes 2. Left atrial enlargement 3. Repolarization changes Course - Vital Signs Last Recorded V/S: Last Vital Signs Temp 37.5 C 08/22/17 17:02 Pulse 62 08/22/17 18:50 Resp 14 08/22/17 18:50 BP 119/71 08/22/17 18:50 Pulse Ox 98 08/22/17 18:50 Vital Signs - 24 hr 08/22/17 08/22/17 08/22/17 16:17 17:02 17:30 Temperature [ 37.5 C Temporal] Pulse, 101 H 69 63 Peripheral [ Right Pulse Oximetry] Respiratory 20 17 Rate Blood Pressure 132/76 137/111 H 131/87 [Left Upper Arm ] O2 Sat by Pulse 97 Oximetry 08/22/17 08/22/17 08/22/17 18:00 18:30 18:50 Temperature [ Temporal] Pulse, 57 L 60 62 Peripheral [ Right Pulse Oximetry] Respiratory 12 14 14 Rate Blood Pressure 119/71 119/71 [Left Upper Arm ] O2 Sat by Pulse 97 97 98 Oximetry - Orders/Labs/Meds Orders: Active Orders 24 hr Category Date Time Status Cardiac Monitoring [RC] . DIRECTED Care 08/22/17 16:35 Active EKG Documentation Completion [RC] ASDIRECTED Care 08/22/17 16:35 Active Peripheral IV Care [RC] . DIRECTED Care 08/22/17 16:35 Active Pulse Oximetry [RC] CONTINUOUS Care 08/22/17 16:35 Active Up With Assistance [RC] PFP Care 08/22/17 16:35 Active Vital Signs [RC] PFP Care 08/22/17 16:35 Active Nothing per Oral Now Diet [DIET] Diet 08/22/17 Breakfast Active Abdomen Series w Chest 1V [CR] Stat Exams 08/22/17 16:37 Taken CULTURE BLOOD [BC] Stat Lab 08/22/17 17:05 Received CULTURE BLOOD [BC] Stat Lab 08/22/17 17:35 Received CULTURE STREP A CONFIRMATION [RM] Stat Lab 08/22/17 17:30 Results STREP SCRN A RAPID W CULT CONF [RM] Stat Lab 08/22/17 17:30 Results Sodium Chloride 0.9% [Saline Flush] Med 08/22/17 16:35 Active 10 ml FLUSH ASDIRECTED PRN Blood Culture x2 Reflex Set [OM.PC] Urgent Oth 08/22/17 16:36 Ordered Obtain Past Medical Record [OM.PC] Urgent Oth 08/22/17 16:35 Active Peripheral IV Insertion Adult [OM.PC] Stat Oth 08/22/17 16:35 Ordered Resuscitation Status Stat Resus Stat 08/22/17 16:35 Ordered Medication Orders Sodium Chloride (Saline Flush) 10 ml FLUSH ASDIRECTED PRN PRN Reason: Keep Vein Open Last Admin: 08/22/17 17:03 Dose: 10 ml Labs: Laboratory Tests 08/22/17 08/22/17 08/22/17 Range/Units 16:35 16:35 17:05 WBC 6.4 (4.0-10.2) K/uL RBC 4.24 (3.77-5.09) M/uL Hgb 13.1 (11.7-15.5) g/dL Hct 37.8 (34.0-46.0) % MCV 89.2 (84.0-98.0) fL MCH 30.9 (28.2-33.3) pg MCHC 34.7 (31.7-36.0) g/dL RDW 13.0 (11.2-14.1) % Plt Count 213 (150-350) K/uL Neut % (Auto) 47.1 (45.0-80.0) % Lymph % (Auto) 36.3 (10.0-50.0) % Weld % (Auto) 10.5 (2.0-14.0) % Eos % (Auto) 4.7 (0.0-5.0) % Baso % (Auto) 1.4 (0.0-2.0) % Neut # (Auto) 3.02 (1.40-7.00) K/uL Lymph # (Auto) 2.32 (0.50-3.50) K/uL Weld # (Auto) 0.67 (0.00-1.00) K/uL Eos # (Auto) 0.30 (0.00-0.50) K/uL Baso # (Auto) 0.09 (0.00-0.20) K/uL PT (9.8-11.7) SEC INR APTT (22.1-29.8) SEC D-Dimer, Quantitative (0-400) ng/mL Sodium 141 (136-145) mmol/L Potassium 4.1 (3.5-5.1) mmol/L Chloride 107 (98-107) mmol/L Carbon Dioxide 24.4 (21.0-32.0) mmol/L BUN 18 (7-18) mg/dL Creatinine 0.98 (0.51-1.17) mg/dL Est Cr Clr Drug Dosing 36.18 mL/min Estimated GFR (MDRD) 55 mL/min Glucose 109 H (74-106) mg/dL Lactic Acid 0.1 L (0.4-2.0) mmol/L Uric Acid 3.9 (2.6-7.2) mg/dL Calcium 10.0 (8.5-10.1) mg/dL Magnesium 2.2 (1.8-2.4) mg/dL Total Bilirubin 0.5 (0.2-1.0) mg/dL AST 16 (15-37) U/L ALT 19 (12-78) U/L Alkaline Phosphatase 75 (46-116) IU/L Creatine Kinase 103 (26-308) U/L Creatine Kinase Index 1.6 (0.0-2.5) % CK-MB (CK-2) 1.60 (0.00-3.60) ng/mL Troponin I 0.001 (0.000-0.056) ng/mL NT-Pro-B Natriuret Pep 93 (0-125) pg/mL Total Protein 7.4 (6.4-8.2) g/dL Albumin 3.7 (3.4-5.0) g/dL Amylase 64 (25-115) U/L Lipase 136 (73-393) U/L TSH, Ultra Sensitive 1.366 (0.358-3.740) mIU/mL 08/22/17 08/22/17 Range/Units 17:05 17:05 WBC (4.0-10.2) K/uL RBC (3.77-5.09) M/uL Hgb (11.7-15.5) g/dL Hct (34.0-46.0) % MCV (84.0-98.0) fL MCH (28.2-33.3) pg MCHC (31.7-36.0) g/dL RDW (11.2-14.1) % Plt Count (150-350) K/uL Neut % (Auto) (45.0-80.0) % Lymph % (Auto) (10.0-50.0) % Weld % (Auto) (2.0-14.0) % Eos % (Auto) (0.0-5.0) % Baso % (Auto) (0.0-2.0) % Neut # (Auto) (1.40-7.00) K/uL Lymph # (Auto) (0.50-3.50) K/uL Weld # (Auto) (0.00-1.00) K/uL Eos # (Auto) (0.00-0.50) K/uL Baso # (Auto) (0.00-0.20) K/uL PT 10.4 (9.8-11.7) SEC INR 1.0 APTT 24.7 (22.1-29.8) SEC D-Dimer, Quantitative 119 (0-400) ng/mL Sodium (136-145) mmol/L Potassium (3.5-5.1) mmol/L Chloride (98-107) mmol/L Carbon Dioxide (21.0-32.0) mmol/L BUN (7-18) mg/dL Creatinine (0.51-1.17) mg/dL Est Cr Clr Drug Dosing mL/min Estimated GFR (MDRD) mL/min Glucose (74-106) mg/dL Lactic Acid (0.4-2.0) mmol/L Uric Acid (2.6-7.2) mg/dL Calcium (8.5-10.1) mg/dL Magnesium (1.8-2.4) mg/dL Total Bilirubin (0.2-1.0) mg/dL AST (15-37) U/L ALT (12-78) U/L Alkaline Phosphatase (46-116) IU/L Creatine Kinase (26-308) U/L Creatine Kinase Index (0.0-2.5) % CK-MB (CK-2) (0.00-3.60) ng/mL Troponin I (0.000-0.056) ng/mL NT-Pro-B Natriuret Pep (0-125) pg/mL Total Protein (6.4-8.2) g/dL Albumin (3.4-5.0) g/dL Amylase (25-115) U/L Lipase (73-393) U/L TSH, Ultra Sensitive (0.358-3.740) mIU/mL Microbiology 08/22/17 17:30 Group A Streptococcus Rapid Screen - Final Throat NEGATIVE STREP A SCREEN 08/22/17 17:30 Influenza Type A Antigen Screen - Final Nasal, Right NEGATIVE INFLUENZA A VIRUS AG Influenza Type B Antigen Screen - Final NEGATIVE INFLUENZA B VIRUS AG Meds: Medications Generic Name Dose Route Start Last Admin Trade Name Freq PRN Reason Stop Dose Admin Sodium Chloride 10 ml 08/22/17 16:35 08/22/17 17:03 Saline Flush FLUSH 10 ml ASDIRECTED PRN Administration Keep Vein Open Discontinued Medications Generic Name Dose Route Start Last Admin Trade Name Freq PRN Reason Stop Dose Admin Al Hydroxide/Mg Hydroxide 30 ml 08/22/17 17:49 Gi Cocktail PO 08/22/17 17:50 ONETIME ONE Famotidine 40 mg 08/22/17 16:35 08/22/17 17:03 Pepcid IVPUSH 08/22/17 16:36 40 mg ONETIME ONE Administration Ondansetron HCl 4 mg 08/22/17 17:49 Zofran IVPUSH 08/22/17 17:50 ONETIME ONE - Radiology Interpretation Free Text/Narrative:: monitoring coordinator shows normal sinus rhythm with average heart rate in the 60-70s with no ectopy or arrhythmia, although occasional borderline bradycardia in the high 50s Acute abdominal x-rays shows some mild to moderate pulmonary fibrotic and emphysematous changes with mild prominence of the proximal aortic arch but no CHF, pulmonary infiltrates, pneumothorax, or cardiomegaly. Mild diffuse stool with nonspecific bowel gaseous pattern with no free air, fluid levels, ileus, or obstruction. Mild to moderate [place] 30 can osteoporotic changes noted with additional mild scoliosis. Subsequent official x-ray report shows no acute changes Departure - Departure Time of Disposition: 19:15 Disposition: Home, Self-Care 01 Condition: Good Clinical Impression: Mixed anxiety and depressive disorder, Peptic reflux disease, Osteoarthritis COPD (chronic obstructive pulmonary disease) Qualifiers: COPD type: emphysema Emphysema type: panlobular Qualified Code(s): J43.1 - Panlobular emphysema Hypertension Qualifiers: Hypertension type: essential hypertension Qualified Code(s): I10 - Essential ( primary) hypertension Prescriptions: Famotidine [Pepcid] 20 mg PO BEDTIME #30 tab Instructions: Gastroesophageal Reflux Disease, Adult, [id number] Referrals: Venus Leslie NP [Primary Care Provider] - Forms: ED Department Discharge Additional Instructions: 1. Followup with your regular provider in 10-14 days as directed. Additional blood work, x-rays, etc. at that time depending on your clinical findings. Discuss newly initiated additional Pepcid therapy at that time 2. [place] diet including encouragement of oral fluids such as sports drinks, etc. for 24-48 hours as directed. Advance to heart healthy on the high-fiber diet as tolerated thereafter. 3. Tylenol 650 mg by mouth every 4 hours when necessary as directed. - Problem List & Annotations (1) Peptic reflux disease SNOMED Code(s): 164089802 Code(s): K21.9 - GASTRO-ESOPHAGEAL REFLUX DISEASE WITHOUT ESOPHAGITIS Status: Acute Priority: High Onset Date: ~08/19/17 Annotation/Comment:: Long history of esophagitis and gastritis with overall good results to medications as above. No true chest pain or anginal type symptoms with negative EKG and cardiac enzymes as above. Continue current medical therapy with additional OTC Pepcid to be started tomorrow. Follow-up by regular provider as per discharge instructions. Strong anxiety component to current symptoms. Note history of recurrent bowel obstructions, however no indication of this at this time. In addition, note previous EGD 2 last year as above. (2) Osteoarthritis SNOMED Code(s): 145503277 Code(s): M19.90 - UNSPECIFIED OSTEOARTHRITIS, UNSPECIFIED SITE Status: Chronic Priority: Medium Annotation/Comment:: Stable by patient history (3) Mixed anxiety and depressive disorder SNOMED Code(s): 299032973 Code(s): F41.8 - OTHER SPECIFIED ANXIETY DISORDERS Status: Chronic Priority: Medium Annotation/Comment:: Only under moderate control at this time. IM diazepam also given in the emergency room prior to the patient deciding on admission to this facility. Medication adjustment by her regular provider (4) COPD (chronic obstructive pulmonary disease) SNOMED Code(s): 06855582 Code(s): J44.9 - CHRONIC OBSTRUCTIVE PULMONARY DISEASE, UNSPECIFIED Status : Chronic Priority: Medium Annotation/Comment:: No true history of recent bronchitic type symptoms, fever, etc.. Note history of sleep apnea with patient not tolerating auto CPAP and not currently using oxygen Qualifiers: COPD type: emphysema Emphysema type: panlobular Qualified Code(s): J43.1 - Panlobular emphysema (5) Hypertension SNOMED Code(s): 81299580 Code(s): I10 - ESSENTIAL (PRIMARY) HYPERTENSION Status: Acute Priority: High Onset Date: 11/10/15 Annotation/Comment:: Moderately elevated blood pressure on arrival however normalized shortly thereafter without additional therapy. Note previous diagnosis of hypertension with no current medical therapy. Anxiety is a significant component of her previous elevated blood pressures. Continue to observe closely by her regular providers. Qualifiers: Hypertension type: essential hypertension Qualified Code(s): I10 - Essential (primary) hypertension - Problem List Review Problem List Initiated/Reviewed/Updated: Yes - My Orders Last 24 Hours: My Active Orders 08/22/17 16:35 Cardiac Monitoring [RC] . DIRECTED EKG Documentation Completion [RC] ASDIRECTED Peripheral IV Care [RC] . DIRECTED Pulse Oximetry [RC] CONTINUOUS Up With Assistance [RC] PFP Vital Signs [RC] PFP Sodium Chloride 0.9% [Saline Flush] 10 ml FLUSH ASDIRECTED PRN Obtain Past Medical Record [OM.PC] Urgent Peripheral IV Insertion Adult [OM.PC] Stat Resuscitation Status Stat 08/22/17 16:36 Blood Culture x2 Reflex Set [OM.PC] Urgent 08/22/17 16:37 Abdomen Series w Chest 1V [CR] Stat 08/22/17 17:05 CULTURE BLOOD [BC] Stat 08/22/17 17:30 CULTURE STREP A CONFIRMATION [RM] Stat STREP SCRN A RAPID W CULT CONF [RM] Stat 08/22/17 17:35 CULTURE BLOOD [BC] Stat 08/22/17 Breakfast Nothing per Oral Now Diet [DIET] - Assessment/Plan Last 24 Hours: My Active Orders 08/22/17 16:35 Cardiac Monitoring [RC] . DIRECTED EKG Documentation Completion [RC] ASDIRECTED Peripheral IV Care [RC] . DIRECTED Pulse Oximetry [RC] CONTINUOUS Up With Assistance [RC] PFP Vital Signs [RC] PFP Sodium Chloride 0.9% [Saline Flush] 10 ml FLUSH ASDIRECTED PRN Obtain Past Medical Record [OM.PC] Urgent Peripheral IV Insertion Adult [OM.PC] Stat Resuscitation Status Stat 08/22/17 16:36 Blood Culture x2 Reflex Set [OM.PC] Urgent 08/22/17 16:37 Abdomen Series w Chest 1V [CR] Stat 08/22/17 17:05 CULTURE BLOOD [BC] Stat 08/22/17 17:30 CULTURE STREP A CONFIRMATION [RM] Stat STREP SCRN A RAPID W CULT CONF [RM] Stat 08/22/17 17:35 CULTURE BLOOD [BC] Stat 08/22/17 Breakfast Nothing per Oral Now Diet [DIET] Assessment:: As above Plan: As above. Extensive precautions were given to the patient, who is in agreement with the treatment plan. See Patient Instructions for further treatment and plan.
[2017-08-22] MEDS ORDERED: GI Cocktail Oral Solution 30 ML PO ONE (17:49)
[2017-08-22] MEDS ORDERED: Ondansetron 4 MG/2 ML SDV IVPUSH ONE (17:49)
[2017-08-22 21:28] VITALS: BP 119/71
== END 2017-08-22 19:15 | disposition home or self-care (01) ==
LOC: LL.ED 16:17
DX: F41.8 Other specified anxiety disorders (principal); K21.9 Gastro-esophageal reflux disease without esophagitis; J43.1 Panlobular emphysema; M15.9 Polyosteoarthritis, unspecified; E78.00 Pure hypercholesterolemia, unspecified; I10 Essential (primary) hypertension; Z88.5 Allergy status to narcotic agent; Z79.899 Other long term (current) drug therapy; Z87.891 Personal history of nicotine dependence
CPT/HCPCS: 36415; 74022; 80053; 82150; 82550; 82553; 83605; 83690; 83735; 83880; 84443; 84484; 84550; 85025; 85379; 85610; 85730; 87040; 87081; 87430; 87804; 93005; 96374; 96375; 99285; A9270-GY; J2405; J7050; S0028

== ENCOUNTER 2021-08-20 11:30 | Emergency (ER) | payer MEDICARE, BC ==
[2021-08-20] MEDS ORDERED: fentaNYL 50 MCG/ML SDV IVPUSH ONE ×2 (11:34→12:50)
[2021-08-20 12:51] LABS: ANION GAP 10.4 meq/L (7-15)
[2021-08-20] MEDS ORDERED: Ondansetron 4 MG/2 ML SDV IVPUSH ONE (13:21)
[2021-08-20] MEDS: Sodium Chloride 0.9% 10 ML Syringe FLUSH PRN ×3 (13:34→14:38)
[2021-08-20] MEDS ORDERED: diphenhydrAMINE 50 MG/ML SDV IVPUSH ONE (13:39)
[2021-08-20] MEDS ORDERED: HYDROmorphone 1 MG/ML Syringe IVPUSH ONE (14:16)
[2021-08-20 14:38] VITALS: BP 127/68; PULSE 67
== END 2021-08-20 15:00 ==
LOC: LL.ED 11:30
DX: S82.142A Displaced bicondylar fracture of left tibia, initial encounter for closed fracture (principal); S82.832A Other fracture of upper and lower end of left fibula, initial encounter for closed fracture; I10 Essential (primary) hypertension; J44.9 Chronic obstructive pulmonary disease, unspecified; K21.9 Gastro-esophageal reflux disease without esophagitis; Z79.899 Other long term (current) drug therapy; Z88.5 Allergy status to narcotic agent; W08.XXXA Fall from other furniture, initial encounter; Y92.009 Unspecified place in unspecified non-institutional (private) residence as the place of occurrence of the external cause
CPT/HCPCS: 36415; 72170; 73590-LT; 80053; 81003; 83735; 85025; 96374; 96375; 96376; 99284; 99284-25; J1170; J1200; J2405; J3010; J3490

== ENCOUNTER 2021-08-26 14:25 | Inpatient (IN) | payer MEDICARE, BC ==
[2021-08-27] MEDS ORDERED: oxyCODONE 5 MG Tab PO PRN (12:01)
[2021-08-27] MEDS ORDERED: Meclizine 25 MG Tab PO PRN (12:01)
[2021-08-27] MEDS ORDERED: Non-Formulary Medication 1 Each (Naloxone 4 MG Spray) NAS PRN (12:01)
[2021-08-27] MEDS: Apixaban 5 MG Tab PO SCH (17:20)
[2021-08-28] MEDS: Pantoprazole 40 MG Tab.CR PO SCH (07:46)
[2021-08-28] MEDS: Polyethylene Glycol 3350 Powder 17 GM Packet PO SCH (07:46)
[2021-08-28] MEDS: Apixaban 5 MG Tab PO SCH ×2 (07:46→17:02)
[2021-08-28] MEDS ORDERED: Acetaminophen 500 MG Tab PO PRN (08:20)
[2021-08-28] MEDS: Acetaminophen 500 MG Tab PO PRN (09:11)
[2021-08-28] MEDS: oxyCODONE 5 MG Tab PO PRN ×2 (12:54→23:46)
[2021-08-29] MEDS: Acetaminophen 500 MG Tab PO PRN ×2 (01:53→17:36)
[2021-08-29] MEDS: Apixaban 5 MG Tab PO SCH ×2 (07:41→17:36)
[2021-08-29] MEDS: oxyCODONE 5 MG Tab PO PRN (07:42)
[2021-08-29] MEDS: Polyethylene Glycol 3350 Powder 17 GM Packet PO SCH (07:42)
[2021-08-29] MEDS: Pantoprazole 40 MG Tab.CR PO SCH (07:42)
[2021-08-29] MEDS: Menthol/Methyl Salicylate 85 GM Tube TOP PRN (11:47)
[2021-08-30] MEDS: oxyCODONE 5 MG Tab PO PRN ×4 (00:29→20:19)
[2021-08-30] MEDS: Pantoprazole 40 MG Tab.CR PO SCH (08:22)
[2021-08-30] MEDS: Apixaban 5 MG Tab PO SCH ×2 (08:22→18:23)
[2021-08-30] MEDS: Polyethylene Glycol 3350 Powder 17 GM Packet PO SCH (08:23)
[2021-08-30] MEDS: Acetaminophen 500 MG Tab PO PRN ×2 (12:48→23:32)
[2021-08-31] MEDS: oxyCODONE 5 MG Tab PO PRN ×3 (03:04→17:56)
[2021-08-31] MEDS: Apixaban 5 MG Tab PO SCH ×2 (08:26→17:56)
[2021-08-31] MEDS: Pantoprazole 40 MG Tab.CR PO SCH (08:26)
[2021-08-31] MEDS: Polyethylene Glycol 3350 Powder 17 GM Packet PO SCH (08:27)
[2021-08-31] MEDS: Acetaminophen 500 MG Tab PO PRN ×3 (08:30→20:38)
[2021-08-31] MEDS: Menthol/Methyl Salicylate 85 GM Tube TOP PRN ×2 (11:23→17:56)
[2021-09-01] MEDS: oxyCODONE 5 MG Tab PO PRN ×3 (01:36→16:18)
[2021-09-01] MEDS: Pantoprazole 40 MG Tab.CR PO SCH (07:28)
[2021-09-01] MEDS: Apixaban 5 MG Tab PO SCH ×2 (07:29→17:24)
[2021-09-01] MEDS: Polyethylene Glycol 3350 Powder 17 GM Packet PO SCH (07:29)
[2021-09-01] MEDS: Acetaminophen 500 MG Tab PO PRN ×2 (09:53→16:18)
[2021-09-01] MEDS: Menthol/Methyl Salicylate 85 GM Tube TOP PRN (17:24)
[2021-09-01] MEDS: Cyclobenzaprine 10 MG Tab PO PRN (19:36)
[2021-09-01] MEDS: Nystatin Topical Powder 15 GM Bottle TOP SCH ×2 (19:51→20:00)
[2021-09-01] MEDS ORDERED: GI Cocktail Oral Solution 30 ML PO ONE (23:43)
[2021-09-02] MEDS: Nystatin Topical Powder 15 GM Bottle TOP SCH ×4 (07:58→19:34)
[2021-09-02] MEDS: Polyethylene Glycol 3350 Powder 17 GM Packet PO SCH (07:58)
[2021-09-02] MEDS: Pantoprazole 40 MG Tab.CR PO SCH (07:59)
[2021-09-02] MEDS: Apixaban 5 MG Tab PO SCH ×2 (07:59→18:01)
[2021-09-02] MEDS: Acetaminophen 500 MG Tab PO PRN ×2 (08:00→15:02)
[2021-09-02] MEDS: Menthol/Methyl Salicylate 85 GM Tube TOP PRN (08:02)
[2021-09-02] MEDS: traMADol 50 MG Tab PO PRN ×2 (11:12→19:35)
[2021-09-03] MEDS: traMADol 50 MG Tab PO PRN ×3 (01:43→20:56)
[2021-09-03] MEDS: Menthol/Methyl Salicylate 85 GM Tube TOP PRN (05:55)
[2021-09-03] MEDS: Polyethylene Glycol 3350 Powder 17 GM Packet PO SCH (08:32)
[2021-09-03] MEDS: Apixaban 5 MG Tab PO SCH ×2 (08:33→17:48)
[2021-09-03] MEDS: Pantoprazole 40 MG Tab.CR PO SCH (08:33)
[2021-09-03] MEDS: Cyclobenzaprine 10 MG Tab PO PRN ×2 (08:33→17:47)
[2021-09-03] MEDS: Acetaminophen 500 MG Tab PO PRN ×2 (08:34→17:48)
[2021-09-03] MEDS: Nystatin Topical Powder 15 GM Bottle TOP SCH ×4 (08:36→21:04)
[2021-09-04] MEDS: Acetaminophen 500 MG Tab PO PRN ×3 (00:04→20:52)
[2021-09-04] MEDS: traMADol 50 MG Tab PO PRN ×2 (08:42→17:38)
[2021-09-04] MEDS: Apixaban 5 MG Tab PO SCH ×2 (08:42→17:37)
[2021-09-04] MEDS: Polyethylene Glycol 3350 Powder 17 GM Packet PO SCH (08:44)
[2021-09-04] MEDS: Pantoprazole 40 MG Tab.CR PO SCH (08:44)
[2021-09-04] MEDS: Nystatin Topical Powder 15 GM Bottle TOP SCH ×4 (08:44→21:16)
[2021-09-04] MEDS: Menthol/Methyl Salicylate 85 GM Tube TOP PRN ×3 (08:44→20:53)
[2021-09-05] MEDS: traMADol 50 MG Tab PO PRN ×3 (00:02→22:05)
[2021-09-05] MEDS: Acetaminophen 500 MG Tab PO PRN ×2 (08:04→18:07)
[2021-09-05] MEDS: Apixaban 5 MG Tab PO SCH ×2 (08:05→18:06)
[2021-09-05] MEDS: Polyethylene Glycol 3350 Powder 17 GM Packet PO SCH (08:06)
[2021-09-05] MEDS: Pantoprazole 40 MG Tab.CR PO SCH (08:06)
[2021-09-05] MEDS: Nystatin Topical Powder 15 GM Bottle TOP SCH ×5 (08:07→22:08)
[2021-09-05] MEDS: Menthol/Methyl Salicylate 85 GM Tube TOP PRN ×2 (08:07→15:00)
[2021-09-06] MEDS: Polyethylene Glycol 3350 Powder 17 GM Packet PO SCH (07:22)
[2021-09-06] MEDS: traMADol 50 MG Tab PO PRN ×2 (07:23→17:27)
[2021-09-06] MEDS: Apixaban 5 MG Tab PO SCH ×2 (07:23→17:27)
[2021-09-06] MEDS: Pantoprazole 40 MG Tab.CR PO SCH (07:23)
[2021-09-06] MEDS: Nystatin Topical Powder 15 GM Bottle TOP SCH ×4 (07:24→21:07)
[2021-09-06] MEDS: Acetaminophen 500 MG Tab PO PRN (11:26)
[2021-09-07] MEDS: Acetaminophen 500 MG Tab PO PRN ×2 (02:30→17:10)
[2021-09-07] MEDS: Polyethylene Glycol 3350 Powder 17 GM Packet PO SCH (10:11)
[2021-09-07] MEDS: Apixaban 5 MG Tab PO SCH ×2 (10:12→17:10)
[2021-09-07] MEDS: Pantoprazole 40 MG Tab.CR PO SCH (10:12)
[2021-09-07] MEDS: traMADol 50 MG Tab PO PRN (10:12)
[2021-09-07] MEDS: Nystatin Topical Powder 15 GM Bottle TOP SCH ×4 (10:13→23:40)
[2021-09-07] MEDS: Menthol/Methyl Salicylate 85 GM Tube TOP PRN (10:17)
[2021-09-08] MEDS: Acetaminophen 500 MG Tab PO PRN (06:14)
[2021-09-08] MEDS: Apixaban 5 MG Tab PO SCH ×2 (07:31→17:45)
[2021-09-08] MEDS: traMADol 50 MG Tab PO PRN ×3 (07:31→22:35)
[2021-09-08] MEDS: Pantoprazole 40 MG Tab.CR PO SCH (07:31)
[2021-09-08] MEDS: Nystatin Topical Powder 15 GM Bottle TOP SCH ×4 (07:32→21:00)
[2021-09-08] MEDS: Polyethylene Glycol 3350 Powder 17 GM Packet PO SCH (07:32)
[2021-09-08] MEDS: Menthol/Methyl Salicylate 85 GM Tube TOP PRN (17:40)
[2021-09-09] MEDS: Pantoprazole 40 MG Tab.CR PO SCH (08:52)
[2021-09-09] MEDS: traMADol 50 MG Tab PO PRN (08:53)
[2021-09-09] MEDS: Polyethylene Glycol 3350 Powder 17 GM Packet PO SCH (08:54)
[2021-09-09] MEDS: Apixaban 5 MG Tab PO SCH ×2 (08:54→16:59)
[2021-09-09] MEDS: Nystatin Topical Powder 15 GM Bottle TOP SCH ×4 (08:54→20:35)
[2021-09-09] MEDS: Menthol/Methyl Salicylate 85 GM Tube TOP PRN ×2 (08:54→17:39)
[2021-09-09] MEDS: Acetaminophen 500 MG Tab PO PRN (12:26)
[2021-09-10] MEDS: Nystatin Topical Powder 15 GM Bottle TOP SCH ×4 (07:38→20:33)
[2021-09-10] MEDS: Polyethylene Glycol 3350 Powder 17 GM Packet PO SCH (07:38)
[2021-09-10] MEDS: Apixaban 5 MG Tab PO SCH ×2 (07:39→17:46)
[2021-09-10] MEDS: Pantoprazole 40 MG Tab.CR PO SCH (07:39)
[2021-09-10] MEDS: Menthol/Methyl Salicylate 85 GM Tube TOP PRN (07:40)
[2021-09-11] MEDS: Polyethylene Glycol 3350 Powder 17 GM Packet PO SCH (08:59)
[2021-09-11] MEDS: Apixaban 5 MG Tab PO SCH ×2 (09:00→17:18)
[2021-09-11] MEDS: Nystatin Topical Powder 15 GM Bottle TOP SCH ×4 (09:01→19:54)
[2021-09-11] MEDS: Pantoprazole 40 MG Tab.CR PO SCH (09:01)
[2021-09-11] MEDS ORDERED: Loperamide 2 MG Tab PO ONE (16:46)
[2021-09-11] MEDS ORDERED: Loperamide 2 MG Tab PO PRN (16:49)
[2021-09-12] MEDS: Apixaban 5 MG Tab PO SCH ×2 (09:45→17:06)
[2021-09-12] MEDS: Pantoprazole 40 MG Tab.CR PO SCH (09:45)
[2021-09-12] MEDS: Polyethylene Glycol 3350 Powder 17 GM Packet PO SCH (09:45)
[2021-09-12] MEDS: Nystatin Topical Powder 15 GM Bottle TOP SCH ×4 (11:05→20:58)
[2021-09-12] MEDS: Menthol/Methyl Salicylate 85 GM Tube TOP PRN (20:59)
[2021-09-13] MEDS: Apixaban 5 MG Tab PO SCH ×2 (08:59→18:10)
[2021-09-13] MEDS: Pantoprazole 40 MG Tab.CR PO SCH (08:59)
[2021-09-13] MEDS: Nystatin Topical Powder 15 GM Bottle TOP SCH ×4 (08:59→21:39)
[2021-09-13] MEDS: Polyethylene Glycol 3350 Powder 17 GM Packet PO SCH (09:02)
[2021-09-13] MEDS: Menthol/Methyl Salicylate 85 GM Tube TOP PRN (21:39)
[2021-09-13] MEDS: Acetaminophen 500 MG Tab PO PRN (23:41)
[2021-09-13] MEDS: Cyclobenzaprine 10 MG Tab PO PRN (23:41)
[2021-09-14] MEDS: Polyethylene Glycol 3350 Powder 17 GM Packet PO SCH (09:04)
[2021-09-14] MEDS: Pantoprazole 40 MG Tab.CR PO SCH (09:04)
[2021-09-14] MEDS: Apixaban 5 MG Tab PO SCH ×2 (09:04→17:23)
[2021-09-14] MEDS: Menthol/Methyl Salicylate 85 GM Tube TOP PRN (09:05)
[2021-09-14] MEDS: Nystatin Topical Powder 15 GM Bottle TOP SCH ×3 (09:05→17:13)
[2021-09-15] MEDS: Nystatin Topical Powder 15 GM Bottle TOP SCH ×5 (05:26→21:21)
[2021-09-15] MEDS: Pantoprazole 40 MG Tab.CR PO SCH (08:04)
[2021-09-15] MEDS: Apixaban 5 MG Tab PO SCH ×2 (08:04→17:23)
[2021-09-15] MEDS: Polyethylene Glycol 3350 Powder 17 GM Packet PO SCH (08:05)
[2021-09-16] MEDS: traMADol 50 MG Tab PO PRN (01:15)
[2021-09-16] MEDS: Pantoprazole 40 MG Tab.CR PO SCH (07:16)
[2021-09-16] MEDS: Nystatin Topical Powder 15 GM Bottle TOP SCH ×4 (07:16→19:39)
[2021-09-16] MEDS: Apixaban 5 MG Tab PO SCH ×2 (07:16→17:08)
[2021-09-16] MEDS: Polyethylene Glycol 3350 Powder 17 GM Packet PO SCH (07:17)
[2021-09-16] MEDS: Menthol/Methyl Salicylate 85 GM Tube TOP PRN ×2 (11:04→21:04)
[2021-09-16] MEDS: Acetaminophen 500 MG Tab PO PRN (21:04)
[2021-09-17] MEDS: Polyethylene Glycol 3350 Powder 17 GM Packet PO SCH (07:52)
[2021-09-17] MEDS: Apixaban 5 MG Tab PO SCH ×2 (07:52→17:23)
[2021-09-17] MEDS: Pantoprazole 40 MG Tab.CR PO SCH (07:52)
[2021-09-17] MEDS: Nystatin Topical Powder 15 GM Bottle TOP SCH ×4 (07:53→20:04)
[2021-09-17] MEDS: Menthol/Methyl Salicylate 85 GM Tube TOP PRN (14:39)
[2021-09-17] MEDS: Acetaminophen 500 MG Tab PO PRN (23:02)
[2021-09-18] MEDS: Apixaban 5 MG Tab PO SCH ×2 (08:19→17:16)
[2021-09-18] MEDS: Menthol/Methyl Salicylate 85 GM Tube TOP PRN (08:19)
[2021-09-18] MEDS: Polyethylene Glycol 3350 Powder 17 GM Packet PO SCH (08:19)
[2021-09-18] MEDS: Pantoprazole 40 MG Tab.CR PO SCH (08:19)
[2021-09-18] MEDS: Nystatin Topical Powder 15 GM Bottle TOP SCH ×5 (08:20→19:13)
[2021-09-18] MEDS: Acetaminophen 500 MG Tab PO PRN (20:50)
[2021-09-19] MEDS: Apixaban 5 MG Tab PO SCH ×2 (08:42→21:00)
[2021-09-19] MEDS: Pantoprazole 40 MG Tab.CR PO SCH (08:42)
[2021-09-19] MEDS: Nystatin Topical Powder 15 GM Bottle TOP SCH (20:33)
[2021-09-19] MEDS: Acetaminophen 500 MG Tab PO PRN (21:00)
[2021-09-20] MEDS: Apixaban 5 MG Tab PO SCH (07:47)
[2021-09-20] MEDS: Pantoprazole 40 MG Tab.CR PO SCH (07:47)
[2021-09-20] MEDS: Polyethylene Glycol 3350 Powder 17 GM Packet PO SCH (07:47)
[2021-09-20] MEDS: Nystatin Topical Powder 15 GM Bottle TOP SCH (07:47)
[2021-09-20 07:52] VITALS: BP 135/80; PULSE 65
== END 2021-09-20 14:00 | disposition home health service (06) | DRG 560 ==
LOC: LL.MS 08-27 13:44
PROVIDERS: ADMIT Nurse Practitioner Family; ATTEND Nurse Practitioner Family
DX: S82.832D Other fracture of upper and lower end of left fibula, subsequent encounter for closed fracture with routine healing (principal); I82.402 Acute embolism and thrombosis of unspecified deep veins of left lower extremity; I42.9 Cardiomyopathy, unspecified; J43.1 Panlobular emphysema; E78.5 Hyperlipidemia, unspecified; I10 Essential (primary) hypertension; F41.8 Other specified anxiety disorders; H54.7 Unspecified visual loss; E78.00 Pure hypercholesterolemia, unspecified; J44.9 Chronic obstructive pulmonary disease, unspecified; J84.10 Pulmonary fibrosis, unspecified; G47.30 Sleep apnea, unspecified; K59.09 Other constipation; K44.9 Diaphragmatic hernia without obstruction or gangrene; K21.9 Gastro-esophageal reflux disease without esophagitis; R32 Unspecified urinary incontinence; N93.8 Other specified abnormal uterine and vaginal bleeding; M19.90 Unspecified osteoarthritis, unspecified site; G89.29 Other chronic pain; M54.9 Dorsalgia, unspecified; M54.2 Cervicalgia; M81.0 Age-related osteoporosis without current pathological fracture; G43.909 Migraine, unspecified, not intractable, without status migrainosus; F41.9 Anxiety disorder, unspecified; F32.A Depression, unspecified; F43.10 Post-traumatic stress disorder, unspecified; M85.80 Other specified disorders of bone density and structure, unspecified site; Z79.01 Long term (current) use of anticoagulants; Z79.899 Other long term (current) drug therapy; Z87.11 Personal history of peptic ulcer disease; Z87.440 Personal history of urinary (tract) infections; Z98.49 Cataract extraction status, unspecified eye; Z90.49 Acquired absence of other specified parts of digestive tract
CPT/HCPCS: 73590-LT; 97110-GO; 97110-GP; 97162-GP; 97166-GO; 97530-GO; 97530-GP; 97535-GO; A9270-GY

== ENCOUNTER 2021-12-10 23:08 | Observation (INO) | payer MEDICARE, BC ==
[2021-12-10] MEDS ORDERED: Sodium Chloride 0.9% 10 ML Syringe FLUSH PRN (23:21)
[2021-12-10] MEDS ORDERED: Lidocaine 2% with EPINEPHrine 1:100,000 20 ML MDV INJECT ONE (23:26)
[2021-12-10] MEDS ORDERED: LORazepam 2 MG/ML SDV IVPUSH ONE (23:47)
[2021-12-11 00:11] LABS: ANION GAP 14.3 meq/L (7-15)
[2021-12-11] MEDS ORDERED: Ondansetron 4 MG/2 ML SDV IVPUSH PRN (01:10)
[2021-12-11] MEDS ORDERED: Sodium Chloride 0.9% 1,000 ML IV ONE (01:14)
[2021-12-11] MEDS: Acetaminophen 325 MG Tab PO PRN ×2 (01:38→08:02)
[2021-12-11 07:30] LABS: BARBITURATE SCREEN,URINE NEGATIVE (NEGATIVE); BENZODIAZEPINES SCREEN,URINE NEGATIVE (NEGATIVE); EDDP,URINE SCREEN NEGATIVE (NEGATIVE); TCA SCREEN,URINE NEGATIVE (NEGATIVE); THC SCREEN,URINE 50 NG/ML NEGATIVE (NEGATIVE)
[2021-12-11 07:35] LABS: BUPRENORPHINE SCREEN,URINE NEGATIVE (NEGATIVE)
[2021-12-11] MEDS ORDERED: Diphtheria,Pertussis(Acell),Tetanus Vaccine 0.5 ML Syringe IM ONE (09:00)
[2021-12-11] MEDS ORDERED: Ketorolac 15 MG/ML SDV IVPUSH ONE (09:00)
[2021-12-11] MEDS ORDERED: Thiamine 100 MG in Sodium Chloride 0.9% 100 ML IV ONE (09:01)
[2021-12-11] MEDS ORDERED: Pantoprazole 40 MG in Sodium Chloride 0.9% 100 ML IV ONE (09:01)
[2021-12-11 09:30] VITALS: BP 139/68; PULSE 64
== END 2021-12-11 09:50 | disposition home or self-care (01) ==
LOC: LL.ED 23:08 → LL.MS 12-11 00:24
PROVIDERS: ADMIT Hospitalist; ATTEND Hospitalist
DX: S01.81XA Laceration without foreign body of other part of head, initial encounter (principal); F10.929 Alcohol use, unspecified with intoxication, unspecified; I11.0 Hypertensive heart disease with heart failure; I50.9 Heart failure, unspecified; I25.10 Atherosclerotic heart disease of native coronary artery without angina pectoris; F41.9 Anxiety disorder, unspecified; F32.A Depression, unspecified; I25.2 Old myocardial infarction; M19.90 Unspecified osteoarthritis, unspecified site; M47.812 Spondylosis without myelopathy or radiculopathy, cervical region; Z79.899 Other long term (current) drug therapy; Z79.01 Long term (current) use of anticoagulants; Z88.5 Allergy status to narcotic agent; Z90.49 Acquired absence of other specified parts of digestive tract; Z98.890 Other specified postprocedural states; Z90.710 Acquired absence of both cervix and uterus; W19.XXXA Unspecified fall, initial encounter
CPT/HCPCS: 12013; 70450; 72125; 80053; 80305; 80307; 81003; 83735; 85025; 96374; 99285; A9270; J2060; J7030; 12011; 99236; G0378

== ENCOUNTER 2022-01-25 12:04 | Emergency (ER) | payer MEDICARE, BC ==
[2022-01-25] MEDS ORDERED: fentaNYL 50 MCG/ML SDV IVPUSH ONE (12:20)
[2022-01-25 12:31] LABS: ANION GAP 13.8 meq/L (7-15); CHLORIDE,CL 108 mmol/L (98-107); ESTIMATED GFR 70 mL/min (>=60); SODIUM,NA 143 mmol/L (136-145)
[2022-01-25] MEDS: Sodium Chloride 0.9% 10 ML Syringe FLUSH PRN ×2 (12:36→14:05)
[2022-01-25] MEDS ORDERED: Iopamidol 755 Mg/ML 100 ML Bottle IVPUSH ONE (12:57)
[2022-01-25 13:03] LABS: CORONAVIRUS COVID-19 NAA NEGATIVE (NEGATIVE); RESPIRATORY SYNCYTIAL VIR NAA NEGATIVE (NEGATIVE)
[2022-01-25 13:03] LABS: PTT,PARTIAL THROMBOPLSTIN TIME 20.5 SEC (23.6-29.8)
[2022-01-25] MEDS ORDERED: methylPREDNISolone Sodium Succinate 125 MG/2 ML SDV IVPUSH ONE (13:53)
[2022-01-25 19:30] VITALS: BP 151/72; PULSE 60
== END 2022-01-25 14:40 | disposition home or self-care (01) ==
LOC: LL.ED 12:04
DX: R07.89 Other chest pain (principal); E78.00 Pure hypercholesterolemia, unspecified; I10 Essential (primary) hypertension; K21.9 Gastro-esophageal reflux disease without esophagitis; J44.9 Chronic obstructive pulmonary disease, unspecified; Z79.899 Other long term (current) drug therapy; Z20.822 Contact with and (suspected) exposure to COVID-19
CPT/HCPCS: 0241U; 36415; 71275; 80053; 83735; 84484; 85025; 85379; 85610; 85730; 86140; 93005; 93010; 96374; 96375; 99285; 99285-25; J2930; J3010; J3490; Q9967